=== PATIENT | male | born 1950 | race Caucasian/White ===

== ENCOUNTER → 2022-10-12 09:14 | Outpatient (CLI) | payer OTHER, SELFPAY ==
[2022-10-12 11:21] LABS: COVID19 -Nasal RAPID Negative (Negative)
== END ==
PROVIDERS: PCP Internal Medicine; Visit Provider Surgery
DX: Z01.812 Encounter for preprocedural laboratory examination (principal); Z20.822 Contact with and (suspected) exposure to COVID-19
CPT/HCPCS: 87635

== ENCOUNTER 2022-10-15 07:26 | Day surgery (SDC) | payer OTHER, SELFPAY ==
--- NOTE | 2022-10-15 | PATH_ITS ---
[facility] Accession Number: [id number] . 01 Material submitted: . PART A: colon - TRANSVERSE COLON POLYP PART B: colon - ASCENDING COLON POLYP PART C: rectosigmoid junction - RECTAL SIGMOID COLON POLYP . 01 Diagnosis: A. Transverse Colon, Polyp, Biopsy: Tubular adenoma. . B. Ascending Colon, Polyp, Biopsy: Sessile serrated adenoma. . C. Rectal Sigmoid, Polyp, Biopsy: Hyperplastic polyp. JN 10/17/2022 1702 Local . 01 Electronically signed: . Annabella Duckworth MD, Pathologist NPI- [id number] . 01 Gross description: . Part A: TRANSVERSE COLON POLYP: Received in formalin are 2 fragment(s) of deleon, soft tissue measuring 0.4 x 0.2 x 0.2 cm to 0.3 x 0.2 x 0.1 cm submitted entirely in 1 cassette(s) Part B: ASCENDING COLON POLYP: Received in formalin is 1 fragment(s) of deleon, soft tissue measuring 1.0 x 0.2 x 0.2 cm submitted entirely in 1 cassette(s) Part C: RECTAL SIGMOID COLON POLYP: Received in formalin is 1 fragment(s) of deleon, soft tissue measuring 0.3 x 0.2 x 0.2 cm submitted entirely in 1 cassette(s) /CPE 10/16/2022 0700 Local . 01 Pathologist provided ICD-10: D12.3, D12.2 . 01 CPT . 213663, 148517, 482205 Specimen Comment: A courtesy copy of this report has been sent to [phone] Performed at: 01 [facility] [address] [place] [address], [place], [place] [id number] MD Jose Rafael Atwood MD Phone: [phone]
[2022-10-15 07:50] VITALS: BP 160/100; PULSE 54; RESP 14; TEMP 36.7; O2SAT 98
--- NOTE | 2022-10-15 07:52 | PM.HP.1 ---
History of Present Illness History of Present Illness Date Patient Seen: 10/15/22 Time Patient Seen: 07:52 Chief complaint: SCREENING COLONOSCOPY Narrative: Here for screening colonoscopy. Patient History Medical History Glaucoma Gout Hypercholesteremia Hypertension Surgical History History of nephrectomy, right Meds Home Medications and Allergies Home Medications Medication Instructions Recorded Confirmed Type allopurinol 100 mg tablet 100 mg PO DAILY 10/15/22 10/15/22 History amlodipine 5 mg tablet 5 mg PO DAILY 10/15/22 10/15/22 History colchicine 0.5 mg tablet 0.5 mg PO DAILY 10/15/22 10/15/22 History dorzolamide 22.3 mg-timolol 6.8 1 drp EYE-BOTH BID 10/15/22 10/15/22 History mg/mL eye drops latanoprost 0.005 % eye drops 1 drp EYE-BOTH DAILY 10/15/22 10/15/22 History losartan 50 mg tablet 50 mg PO DAILY 10/15/22 10/15/22 History pravastatin 20 mg tablet 20 mg PO DAILY 10/15/22 10/15/22 History Allergies Allergy/AdvReac Type Severity Reaction Status Date / Time No Known Drug Allergies Allergy Verified 10/15/22 07:48 Review of Systems Review of Systems ROS: Yes All systems reviewed with the patient and are negative except as otherwise documented Exam Vital Signs (past 8 hours): - 10/15/22 07:50 Temperature 98.0 F Pulse Rate 54 L Respiratory Rate 14 Blood Pressure 160/100 H Pulse Oximetry 98 Oxygen Delivery Method Room Air Oxygen Delivery Method Room Air Const General: cooperative HENMT Head: normal to inspection Eyes General: appearance normal, both eyes and all related structures Neck Neck: normal visual inspection Chest Chest: normal inspection of the chest Resp Effort & Inspection: normal respiratory effort Cardio Rate: regular rate GI Inspection: normal to inspection Skin General: no rashes or lesions noted Neuro General: patient alert and patient awake Extrem General: normal to inspection and no pedal edema Psych Appearance: grossly normal Assessment & Plan Assessment & Plan narrative: 72-year-old male presenting for colon cancer screening. Colonoscopy is pursued today. Time Spent With Patient Critical Care time: I spent a total of [] minutes of critical care time on this patient's care today; this time is exclusive of procedural time.
[2022-10-15 07:53] VITALS: BMI 25.1
--- NOTE | 2022-10-15 07:54 | PM.PREOP ---
Pre-operative Note COVID-19 COVID-19 status: Negative Result date/Date tested (Pos, Neg/Pending): 10/12/22 Criteria for continued procedure: Possibility delay results in more complex future surgery or treatment Interval Note History & Physical reviewed/Exam performed by Physician: Yes Changes to H&P: No ASA Class (for procedural sedation): II
[2022-10-15] MEDS: LACTATED RINGERS 1,000 ML 84 ML IV (07:58)
--- NOTE | 2022-10-15 08:49 | PM.OP.COLON ---
Operative Date/Time/Diagnoses Date of procedure: 10/15/22 Time of procedure: 08:49 Pre-op diagnosis: Colon cancer screening Post-op diagnosis: same Procedure & Clinicians Study performed: Hot and cold snare polypectomy Same procedure as scheduled: Yes Indications: Colon cancer screening. Surgeon: Reed Mariee Procedure Notes SCOAP/Timeout: Done Procedure in detail: After the risks and benefits were explained, written and verbal informed consent was obtained. The patient was brought into the procedure room and placed into the left lateral decubitus position. Please see nurse supervisor refining notes for sedation details. Digital rectal examination was accomplished. The scope was introduced into the patient and advanced under direct visualization to the cecum as identified by the appendiceal orifice and ileocecal valve. The scope was slowly withdrawn to carefully examine the mucosa for any defects or lesions. Comprehensive imaging was accomplished throughout the rectum including the dentate line. The colon was decompressed, the scope was then removed from the patient who tolerated the procedure well. Adult colonoscope Bowel prep fair; with copious irrigation and suction this was rendered adequate. Scope withdrawal time: 24 minutes Sedation minutes: 35 Complications: none Impression: There was some diverticulosis encountered in the sigmoid. In the transverse there was a diminutive polyp removed with cold snare. In the proximal ascending colon approaching the ileocecal valve there was a sessile 7 mm polyp removed with cold snare initially. There was residual oozing of blood that did not respond to brief applications of cautery. I therefore placed 2 endo clips over the polypectomy defect to secure hemostasis. In the rectosigmoid there was a 6 mm polyp removed with hot snare. No additional pathology was appreciated throughout. Endoscopic diagnosis 1. Multiple colon polyps 2. Diverticulosis Post-procedure Plan for aftercare: 1. Await histopathology. 2. If all of these polyps are confirmed adenomatous, repeat colonoscopy will be suggested for 3 years. Disposition: PACU
[2022-10-15 08:52] VITALS: BP 126/79; PULSE 55; RESP 13; TEMP 36.3; O2SAT 99
[2022-10-15 08:57] VITALS: BP 116/67; PULSE 58; RESP 15; O2SAT 98
[2022-10-15 09:02] VITALS: BP 128/79; PULSE 53; RESP 15; TEMP 36.9; O2SAT 99
[2022-10-15 09:05] VITALS: BP 137/74; PULSE 55; RESP 12; O2SAT 99
== END 2022-10-15 09:20 | disposition home or self-care (01) ==
PROVIDERS: PCP Internal Medicine; Referring Provider Internal Medicine Gastroenterology; Visit Provider Internal Medicine Gastroenterology
PROC: 0DJD8ZZ Inspection of Lower Intestinal Tract, Via Natural or Artificial Opening Endoscopic (ICD-10-PCS; CPT 45378; principal; 2022-10-15 08:30)
DX: Z12.11 Encounter for screening for malignant neoplasm of colon (principal); K57.30 Diverticulosis of large intestine without perforation or abscess without bleeding; D12.3 Benign neoplasm of transverse colon; D12.2 Benign neoplasm of ascending colon; K62.1 Rectal polyp
CPT/HCPCS: 45385; J2704

== ENCOUNTER → 2023-03-18 10:14 | Outpatient (CLI) | payer MEDICARE, SELFPAY ==
[2023-03-18 11:02] LABS: Add Manual Diff / Slide Review NO; Basophils Absolute Auto 100 /uL (0-100); Basophils Percent Auto 1.2 % (0-2); Eosinophils Absolute Auto 200 /uL (0-450); Eosinophils Percent Auto 3.4 % (2-4); Hematocrit 40.7 % (41-53); Hemoglobin 14.3 g/dL (13.5-17.5); Lymphocytes Absolute Auto 1900 /uL (1100-4500); Lymphocytes Percent Auto 35.3 % (25-40); Mean Corpuscular HGB Conc 35.2 % (30-36); Mean Corpuscular Volume 93.7 fL (80-100); Monocytes Absolute Auto 700 /uL (0-900); Monocytes Percent Auto 12.5 % (3-14); Neutrophils Absolute Auto 2500 /uL (1500-7000); Neutrophils Percent Auto 47.6 % (50-75); Platelet Count 178 X10^3/uL (150-400); Red Blood Cell Count 4.34 X10^6/uL (4.5-5.9); Red Cell Distribution Width 13.1 % (11.6-14.8); White Blood Cell Count 5.2 X10^3/uL (4.5-11.0)
[2023-03-18 11:27] LABS: Alanine Aminotransferase 29 IU/L (<50); Albumin 4.2 g/dL (3.5-5.0); Albumin Globulin Ratio 1.6 (1.0-2.8); Alkaline Phosphatase 52 U/L (38-126); Aspartate Aminotransferase 28 IU/L (17-59); Bilirubin Total 1.2 mg/dL (0.2-1.3); Blood Urea Nitrogen 24 mg/dL (9-20); Carbon Dioxide 23 mmol/L (22-32); Chloride 105 mmol/L (98-107); Cholesterol 153 mg/dL (140-199); Estimated Glomerular Filt Rate 60 mL/min (>60); Globulin 2.7 g/dL (1.7-4.1); Glucose 92 mg/dL (80-110); HDL Cholesterol 54 mg/dL (40-60); HEMOLYSIS < 15 (0-50); LDL Cholesterol Calculated 81 mg/dL (<100); Potassium 4.2 mmol/L (3.4-5.1); Sodium 138 mmol/L (137-145); Total Protein 6.9 g/dL (6.3-8.2); Triglycerides 91 mg/dL (35-150); Uric Acid 4.3 mg/dL (3.5-8.5)
== END ==
PROVIDERS: PCP Family Medicine; Referring Provider Family Medicine; Visit Provider Family Medicine
DX: E78.5 Hyperlipidemia, unspecified (principal); I10 Essential (primary) hypertension; M10.9 Gout, unspecified; Z90.5 Acquired absence of kidney
CPT/HCPCS: 36415; 80053; 80061; 84550; 85025

== ENCOUNTER → 2023-04-23 10:58 | Outpatient (CLI) | payer MEDICARE, SELFPAY ==
[2023-04-23 12:03] LABS: BUN Creatinine Ratio 19.2 (6-22); Blood Urea Nitrogen 24 mg/dL (9-20); Carbon Dioxide 29 mmol/L (22-32); Chloride 103 mmol/L (98-107); Estimated Glomerular Filt Rate > 60 mL/min (>60); Glucose 97 mg/dL (80-110); HEMOLYSIS < 15 (0-50); Potassium 4.7 mmol/L (3.4-5.1); Sodium 139 mmol/L (137-145)
== END ==
PROVIDERS: PCP Family Medicine; Referring Provider Family Medicine; Visit Provider Family Medicine
DX: N28.9 Disorder of kidney and ureter, unspecified (principal)
CPT/HCPCS: 36415; 80048

== ENCOUNTER → 2024-03-20 09:51 | Outpatient (CLI) | payer MEDICARE, SELFPAY ==
[2024-03-20 16:31] LABS: Alanine Aminotransferase 44 IU/L (<50); Albumin 4.3 g/dL (3.5-5.0); Albumin Globulin Ratio 1.5 (1.0-2.8); Alkaline Phosphatase 53 U/L (38-126); Aspartate Aminotransferase 37 IU/L (17-59); BUN Creatinine Ratio 17.8 (6-22); Bilirubin Total 0.9 mg/dL (0.2-1.3); Blood Urea Nitrogen 24 mg/dL (9-20); Calcium 9.2 mg/dL (8.4-10.2); Carbon Dioxide 28 mmol/L (22-32); Chloride 108 mmol/L (98-107); Cholesterol 159 mg/dL (140-199); Estimated Glomerular Filt Rate 55 mL/min (>60); Globulin 2.8 g/dL (1.7-4.1); Glucose 92 mg/dL (80-110); HDL Cholesterol 51 mg/dL (40-60); HEMOLYSIS < 15 (0-50); LDL Cholesterol Calculated 80 mg/dL (<100); Potassium 4.5 mmol/L (3.4-5.1); Sodium 141 mmol/L (137-145); Total Protein 7.1 g/dL (6.3-8.2); Triglycerides 142 mg/dL (35-150); Uric Acid 4.3 mg/dL (3.5-8.5)
[2024-03-20 18:25] LABS: Hep C Virus Ab w/Reflex Quant NEGATIVE s/c (NEGATIVE)
== END ==
PROVIDERS: PCP Family Medicine; Referring Provider Family Medicine; Visit Provider Family Medicine
DX: Z00.00 Encounter for general adult medical examination without abnormal findings (principal); I10 Essential (primary) hypertension; E78.5 Hyperlipidemia, unspecified; M10.9 Gout, unspecified
CPT/HCPCS: 36415; 80053; 80061; 84550; 86803

== ENCOUNTER → 2024-06-23 11:39 | Outpatient (CLI) | payer MEDICARE, SELFPAY ==
[2024-06-23 12:24] LABS: BUN Creatinine Ratio 18.1 (6-22); Blood Urea Nitrogen 25 mg/dL (9-20); Calcium 9.1 mg/dL (8.4-10.2); Carbon Dioxide 25 mmol/L (22-32); Chloride 106 mmol/L (98-107); Estimated Glomerular Filt Rate 53 mL/min (>60); Glucose 106 mg/dL (80-110); HEMOLYSIS 24 (0-50); Potassium 4.7 mmol/L (3.4-5.1); Sodium 140 mmol/L (137-145)
[2024-06-23 13:32] LABS: Creatinine Urine Random 44.95 mg/dL
[2024-06-23 13:37] LABS: Microalbumin Urine Random 0.7 mg/dL (0-1.6)
== END ==
PROVIDERS: PCP Family Medicine; Referring Provider Family Medicine; Visit Provider Family Medicine
DX: I10 Essential (primary) hypertension (principal); N28.9 Disorder of kidney and ureter, unspecified
CPT/HCPCS: 36415; 80048; 82043; 82570

== ENCOUNTER → 2024-10-21 08:23 | Outpatient (CLI) | payer MEDICARE, SELFPAY ==
[2024-10-21 10:18] LABS: Add Manual Diff / Slide Review NO; Basophils Absolute Auto 100 /uL (0-100); Basophils Percent Auto 2.2 % (0-2); Eosinophils Absolute Auto 200 /uL (0-450); Eosinophils Percent Auto 5.1 % (2-4); Hematocrit 40.9 % (41-53); Hemoglobin 13.8 g/dL (13.5-17.5); Lymphocytes Absolute Auto 1500 /uL (1100-4500); Lymphocytes Percent Auto 30.2 % (25-40); Mean Corpuscular HGB Conc 33.8 % (30-36); Mean Corpuscular Hemoglobin 32.4 PG (26-34); Mean Corpuscular Volume 95.9 fL (80-100); Monocytes Absolute Auto 700 /uL (0-900); Monocytes Percent Auto 14.4 % (3-14); Neutrophils Absolute Auto 2300 /uL (1500-7000); Neutrophils Percent Auto 48.1 % (50-75); Platelet Count 212 X10^3/uL (150-400); Red Blood Cell Count 4.27 X10^6/uL (4.5-5.9); Red Cell Distribution Width 13.1 % (11.6-14.8); White Blood Cell Count 4.8 X10^3/uL (4.5-11.0)
[2024-10-21 11:11] LABS: Alanine Aminotransferase 35 IU/L (<50); Albumin 4.1 g/dL (3.5-5.0); Albumin Globulin Ratio 1.7 (1.0-2.8); Alkaline Phosphatase 55 U/L (38-126); Aspartate Aminotransferase 34 IU/L (17-59); BUN Creatinine Ratio 16.3 (6-22); Bilirubin Total 0.8 mg/dL (0.2-1.3); Blood Urea Nitrogen 21 mg/dL (9-20); Calcium 9.2 mg/dL (8.4-10.2); Carbon Dioxide 25 mmol/L (22-32); Chloride 108 mmol/L (98-107); Estimated Glomerular Filt Rate 57 mL/min (>60); Globulin 2.4 g/dL (1.7-4.1); Glucose 91 mg/dL (80-110); HEMOLYSIS < 15 (0-50); Potassium 4.3 mmol/L (3.4-5.1); Sodium 139 mmol/L (137-145); Total Protein 6.5 g/dL (6.3-8.2)
[2024-10-21 11:23] LABS: Vitamin D 25 Hydroxy (D3) 61.7 ng/mL (30.0-100.0)
== END ==
PROVIDERS: PCP Family Medicine; Referring Provider Family Medicine; Visit Provider Family Medicine
DX: I12.9 Hypertensive chronic kidney disease with stage 1 through stage 4 chronic kidney disease, or unspecified chronic kidney disease (principal); N18.30 Chronic kidney disease, stage 3 unspecified
CPT/HCPCS: 36415; 80053; 82306; 85025

== ENCOUNTER → 2025-04-23 07:48 | Outpatient (CLI) | payer MEDICARE, SELFPAY ==
[2025-04-23 09:48] LABS: Alanine Aminotransferase 40 IU/L (<50); Albumin 4.4 g/dL (3.5-5.0); Albumin Globulin Ratio 1.8 (1.0-2.8); Alkaline Phosphatase 51 U/L (38-126); Aspartate Aminotransferase 40 IU/L (17-59); BUN Creatinine Ratio 21.4 (6-22); Bilirubin Total 0.7 mg/dL (0.2-1.3); Blood Urea Nitrogen 27 mg/dL (9-20); Calcium 9.3 mg/dL (8.4-10.2); Carbon Dioxide 26 mmol/L (22-32); Chloride 105 mmol/L (98-107); Cholesterol 167 mg/dL (140-199); Estimated Glomerular Filt Rate 59 mL/min (>60); Globulin 2.5 g/dL (1.7-4.1); Glucose 92 mg/dL (70-99); HDL Cholesterol 53 mg/dL (40-60); HEMOLYSIS < 15 (0-50); LDL Cholesterol Calculated 95 mg/dL (<100); Potassium 4.5 mmol/L (3.4-5.1); Sodium 139 mmol/L (137-145); Total Protein 6.9 g/dL (6.3-8.2); Triglycerides 97 mg/dL (35-150)
== END ==
PROVIDERS: PCP Family Medicine; Referring Provider Family Medicine; Visit Provider Family Medicine
DX: Z00.00 Encounter for general adult medical examination without abnormal findings (principal); N18.30 Chronic kidney disease, stage 3 unspecified; Z90.5 Acquired absence of kidney; E78.5 Hyperlipidemia, unspecified; I12.9 Hypertensive chronic kidney disease with stage 1 through stage 4 chronic kidney disease, or unspecified chronic kidney disease
CPT/HCPCS: 36415; 80053; 80061